=== PATIENT | female | born 2000 | race Caucasian/White ===

== ENCOUNTER 2023-09-07 13:11 | Emergency (ER) | payer BC, SELFPAY ==
[2023-09-07 13:22] VITALS: BP 116/100; PULSE 84; RESP 20; TEMP 36.9; O2SAT 100
--- NOTE | 2023-09-07 14:04 | ED.FEMALEGU ---
HPI - Female Genitourinary General Chief complaint: Urogenital-Female Stated complaint: Urinary Problem Source: patient and RN notes reviewed Mode of arrival: ambulatory Limitations: no limitations History of Present Illness HPI Narrative: 22-year-old female presented for complaint of burning with urination, blood in urine, frequency, urgency. Onset last night. Endorses suprapubic pressure throughout the night. denies hematuria, nausea, vomiting, abdominal pain, flank pain, constipation, diarrhea, fevers or chills. denies concern for STD Or . Related Data Allergies Allergy/AdvReac Type Severity Reaction Status Date / Time azithromycin Allergy Unknown Rash Verified 09/07/23 13:32 Review of Systems Review of Systems: CONSTITUTIONAL: Denies body aches, fever, chills, or sweats. CARDIOVASCULAR: Denies chest pain, palpitations, or edema. RESPIRATORY: Denies cough or dyspnea. GASTROINTESTINAL: Denies abdominal pain, nausea, vomiting, or diarrhea. GENITOURINARY: Reports dysuria, frequency, urgency, hematuria, denies flank pain SKIN: Denies rash, itching, or wounds. MUSCULOSKELETAL: Denies back pain or myalgia. PMFSH Comments At time of signature, I have reviewed and agree with nursing past medical, surgical, social and family history unless otherwise noted. Please see nursing chart for further information. There is no relevant family history pertinent to the presenting complaint Exam Narrative: GENERAL: Well-appearing and in no acute distress. ENT: Mucous membranes pink and moist. CHEST: No respiratory distress. Clear to auscultation. HEART: Regular rate and rhythm. ABDOMEN: Soft, nondistended, normal active bowel sounds. Suprapubic tenderness with palpation No CVA tenderness SKIN: Warm, dry, no rash. NEURO: No focal deficits. Alert and oriented x3. Gait steady.No signs of depression or anxiety. Course Course Emergency Course: Patient is aware of diagnosis, understands and agrees to treatment plan. Anticipatory guidance given. Patient agrees to follow-up as directed and is aware of reasons to seek care at the emergency department. Portions of this record may have been created with voice recognition software Level of Care: Express Care Visit Vital Signs Vital signs: Vital Signs Temperature 98.4 F 09/07/23 13:22 Pulse Rate 84 09/07/23 13:22 Respiratory Rate 20 09/07/23 13:22 Blood Pressure 116/100 H 09/07/23 13:22 Pulse Oximetry 100 09/07/23 13:22 Oxygen Delivery Room Air 09/07/23 13:22 Temperature 98.4 F 09/07/23 13:22 Pulse Rate 84 09/07/23 13:22 Respiratory Rate 20 09/07/23 13:22 Blood Pressure 116/100 H 09/07/23 13:22 Pulse Oximetry 100 09/07/23 13:22 Oxygen Delivery Room Air 09/07/23 13:22 Reviewed MDM - Female Genitourinary MDM Narrative Medical decision making narrative: results of urine reviewed with patient. Discussed physical exam findings And Rx. Advised supportive measures and signs/symptoms to go to the ER. Pt is appropriate for outpt treatment and f/u. Differential Diagnosis Differential diagnosis: Likely urinary tract infection, bacterial vaginosis, vaginitis and cystitis Lab Data Labs: Urine Glucose Negative Reference Range: Negative Urine Bilirubin Negative Reference Range: Negative Urine Ketone Negative Reference Range: Negative Urine Specific [place] 1.030 Reference Range:1.001-1.035 Urine Blood 2+ Reference Range: Negative * * Urine pH 6.0 Reference Range: 5.0-
== END 2023-09-07 14:10 | disposition home or self-care (01) ==
PROVIDERS: Emergency Provider Nurse Practitioner Family
DX: N39.0 Urinary tract infection, site not specified (principal); B96.20 Unspecified Escherichia coli [E. coli] as the cause of diseases classified elsewhere
CPT/HCPCS: 81003; 87077; 87086; 87186; 99213; G0463

== ENCOUNTER 2024-05-24 18:35 | Emergency (ER) | payer BC, SELFPAY ==
--- NOTE | ~2024-05-24 | XR_ITS ---
EXAMINATION: XR chest 2V DATE: 05/24/2024 19:32 INDICATION: Chest pain. TECHNIQUE: Frontal and lateral views of the chest were obtained. COMPARISON: None. FINDINGS: There is no pneumonia, pleural effusion, or pneumothorax. The heart size is normal. IMPRESSION: 1. No acute cardiopulmonary disease. Reviewed, dictated and finalized at location A. DEPATCHER
[2024-05-24 18:40] VITALS: BP 132/83; PULSE 89; RESP 16; TEMP 36.8; O2SAT 100
--- NOTE | 2024-05-24 18:45 | ECG_ITS ---
Test Date: 2024-05-24 18:45:19 Measurements Intervals [place] Rate: 83 P: 255 IN: 119 QRS: 74 QRSD: 81 T: 63 QT: 353 QTc: 416 Interpretive Statements ECTOPIC ATRIAL RHYTHM BASELINE ARTIFACT- I, II, III, AVR, AVL, AVF, V1-V6 ABNORMAL ECG No previous ECG available for comparison Electronically Signed On 05-25-2024 07:38:06 PAINT PREPARER by Tyrone Sosa D.O.
--- NOTE | 2024-05-24 18:56 | ED_ITS ---
HPI - Chest Pain General Chief Complaint: Chest Pain <CHELSEY Edwards Last Filed: 05/24/24 18:58> Stated Complaint: chest pain x 4 days, mono <Bisi Mora APRN - Last Filed: 05/24/24 18:58> Time Seen by Provider: 05/24/24 18:50 <Bisi Mora APRN - Last Filed: 05/24/24 18:58> Patient is a 23-year-old female who presents to the ER with complaints of chest pain. She was at urgent care earlier today and was diagnosed with mono. Patient reports she has been lethargic lately. She also reports the healthcare provider at urgent care wanted her to come get evaluated in the ER because of her chest pain with lack of cough. Patient reports she has a sore throat that started today but her lethargy started 4-5 days. She has no significant medical history related to this ER visit. Patient denies shortness of breath, fever, lower extremity swelling. <Bisi Mora APRN - Last Filed: 05/24/24 18:58> Source: patient <Naseem Carrillo PA-C - Last Filed: 05/25/24 01:11> Mode of arrival: ambulatory <Naseem Carrillo PA-C - Last Filed: 05/25/24 01:11> Limitations: no limitations <JOSIE Ocampo Last Filed: 05/25/24 01:11> History of Present Illness HPI narrative: Agree with triage note above <JOSIE Ocampo Last Filed: 05/25/24 01:11> Related Data Allergies/Adverse Reactions: Allergies Allergy/AdvReac Type Severity Reaction Status Date / Time azithromycin Allergy Unknown Rash Verified 09/07/23 13:32 <CHELSEY Edwards Last Filed: 05/24/24 18:58> Review of Systems Review of Systems: All systems as dictated in HPI <JOSIE Ocampo Last Filed: 05/25/24 01:11> Exam Narrative: GENERAL: Well-appearing, well-nourished, and in no acute distress. HEAD: Normocephalic, atraumatic. EYES: PERRLA and EOMI. ENT: Nares clear, no rhinorrhea or epistaxis. Mucous membranes moist. Oropharynx without tonsillar hypertrophy exudate or other lesions. NECK: Supple. No adenopathy or masses. CHEST: No respiratory distress. Clear to auscultation. No wheezes rales or rhonchi HEART: Regular rate and rhythm. No murmur heard. Normal peripheral pulses. ABDOMEN: Soft, nontender, nondistended, normal active bowel sounds. MSK: Normal range of motion. No edema. SKIN: Warm, dry, no rash. NEURO: Alert and oriented x4. No focal deficits. PSYCH: Normal mood and affect. <Naseem Carrillo PA-C - Last Filed: 05/25/24 01:11> Course Vital Signs Vital signs: Vital Signs Temperature 98.3 F 05/24/24 18:40 Pulse Rate 89 05/24/24 18:40 Respiratory Rate 16 05/24/24 18:40 Blood Pressure 132/83 05/24/24 18:40 Pulse Oximetry 100 05/24/24 18:40 Oxygen Delivery Room Air 05/24/24 18:40 Temperature 98.3 F 05/24/24 18:40 Pulse Rate 89 05/24/24 18:40 Respiratory Rate 18 05/24/24 22:52 Blood Pressure 120/73 05/24/24 22:52 Pulse Oximetry 100 05/24/24 22:52 Oxygen Delivery Room Air 05/24/24 22:52 <Bisi Mora, DIVINITY PROFESSOR - Last Filed: 05/24/24 18:58> Vital Signs Temperature 98.3 F 05/24/24 18:40 Pulse Rate 89 05/24/24 18:40 Respiratory Rate 16 05/24/24 18:40 Blood Pressure 132/83 05/24/24 18:40 Pulse Oximetry 100 05/24/24 18:40 Oxygen Delivery Room Air 05/24/24 18:40 Temperature 98.3 F 05/24/24 18:40 Pulse Rate 89 05/24/24 18:40 Respiratory Rate 18 05/24/24 22:52 Blood Pressure 120/73 05/24/24 22:52 Pulse Oximetry 100 05/24/24 22:52 Oxygen Delivery Room Air 05/24/24 22:52 <Naseem Carrillo PA-C - Last Filed: 05/25/24 01:11> MDM - Chest Pain MDM Narrative Medical decision making narrative: 23-year-old female presenting for chest pain with recently diagnosed viral was, mono.. Vitals are normal.. Exam is benign overall. Laboratory workup unremarkable including a negative troponin. Chest x-ray shows no acute findings. ECG shows normal sinus rhythm. D-dimer negative as well. Of presentation most likely consistent with pleurisy due to recent viral illness. Naproxen prescription given. Patient will be discharged in stable condition. Supportive measures discussed and return precautions given. Patient is understanding and agreeable with plan for discharge with PCP follow-up. <Naseem Carrillo PA-C - Last Filed: 05/25/24 01:11> Lab Data Result diagrams: 05/24/24 20:33 05/24/24 20:33 <Bisi Mora APRN - Last Filed: 05/24/24 18:58> Labs: Lab Results 05/24/24 05/24/24 Range/Units 20:33 21:59 WBC 10.1 H (4.5-10.0) K/mm3 RBC 5.03 (4.2-5.4) M/mm3 Hgb 14.9 (12.0-15.0) g/dL Hct 42.9 (37.0-47.0) % MCV 85.3 (80-100) fl MCH 29.6 (26-34) pg MCHC 34.7 (32-36) g/dl RDW 12.5 (11.5-14.5) % Plt Count 246 (150-375) k/mm3 MPV 10.4 (7.4-10.4) fl Immature Gran % (Auto) 0.2 (0-0.5) % Neut % (Auto) 66.2 (45.5-73.1) % Lymph % (Auto) 25.9 (18.3-44.2) % Rogers % (Auto) 5.7 (2.6-8.5) % Eos % (Auto) 1.4 (0-4.4) % Baso % (Auto) 0.6 (0.2-1.2) % Lymph # (Auto) 2.62 (0.9-3.2) K/mm3 Rogers # (Auto) 0.6 (0.1-0.6) K/mm3 Eos # (Auto) 0.1 (0-0.3) K/mm3 Baso # (Auto) 0.1 (0.0-0.1) K/mm3 Abs Immat Gran (auto) 0.02 (0.00-0.031) K/mm3 Absolute Neuts (auto) 6.7 (1.3-6.7) K/mm3 Absolute Nucleated RBC 0.000 (0.0-0.012) K/mm3 Nucleated RBC % 0.0 (0.0-0.2) % PT 13.5 (11.1-14.7) Seconds INR 1.0 APTT 26.7 (22.3-36.8) Seconds D-Dimer < 0.27 (<0.48) ug/mL Sodium 141 (137-145) mmol/L Potassium 3.9 (3.4-5.0) mmol/L Chloride 102 (98-107) mmol/L Carbon Dioxide 28 (22-30) mmol/L Anion Gap 11 (4-12) mmol/L BUN 14 (7-17) mg/dL Creatinine 0.70 (0.7-1.0) mg/dL Estim Creat Clear Calc 87 ml/min Estimated GFR > 60 (59 - ) Glucose 82 (65-110) mg/dL Calcium 10.3 H (8.4-10.2) mg/dL Total Bilirubin 0.5 (0.2-1.3) mg/dL AST 36 (14-36) U/L ALT 40 H (6-35) U/L Alkaline Phosphatase 55 (38-126) U/L Troponin I < 0.012 < 0.012 (0.000-0.034) ng/mL Total Protein 9.0 H (6.3-8.2) g/dL Albumin 5.3 H (3.5-5.1) g/dL Lipase 80 (23-300) U/L <Bisi Mora, DIVINITY PROFESSOR - Last Filed: 05/24/24 18:58> Lab Results 05/24/24 05/24/24 Range/Units 20:33 21:59 WBC 10.1 H (4.5-10.0) K/mm3 RBC 5.03 (4.2-5.4) M/mm3 Hgb 14.9 (12.0-15.0) g/dL Hct 42.9 (37.0-47.0) % MCV 85.3 (80-100) fl MCH 29.6 (26-34) pg MCHC 34.7 (32-36) g/dl RDW 12.5 (11.5-14.5) % Plt Count 246 (150-375) k/mm3 MPV 10.4 (7.4-10.4) fl Immature Gran % (Auto) 0.2 (0-0.5) % Neut % (Auto) 66.2 (45.5-73.1) % Lymph % (Auto) 25.9 (18.3-44.2) % Rogers % (Auto) 5.7 (2.6-8.5) % Eos % (Auto) 1.4 (0-4.4) % Baso % (Auto) 0.6 (0.2-1.2) % Lymph # (Auto) 2.62 (0.9-3.2) K/mm3 Rogers # (Auto) 0.6 (0.1-0.6) K/mm3 Eos # (Auto) 0.1 (0-0.3) K/mm3 Baso # (Auto) 0.1 (0.0-0.1) K/mm3 Abs Immat Gran (auto) 0.02 (0.00-0.031) K/mm3 Absolute Neuts (auto) 6.7 (1.3-6.7) K/mm3 Absolute Nucleated RBC 0.000 (0.0-0.012) K/mm3 Nucleated RBC % 0.0 (0.0-0.2) % PT 13.5 (11.1-14.7) Seconds INR 1.0 APTT 26.7 (22.3-36.8) Seconds D-Dimer < 0.27 (<0.48) ug/mL Sodium 141 (137-145) mmol/L Potassium 3.9 (3.4-5.0) mmol/L Chloride 102 (98-107) mmol/L Carbon Dioxide 28 (22-30) mmol/L Anion Gap 11 (4-12) mmol/L BUN 14 (7-17) mg/dL Creatinine 0.70 (0.7-1.0) mg/dL Estim Creat Clear Calc 87 ml/min Estimated GFR > 60 (59 - ) Glucose 82 (65-110) mg/dL Calcium 10.3 H (8.4-10.2) mg/dL Total Bilirubin 0.5 (0.2-1.3) mg/dL AST 36 (14-36) U/L ALT 40 H (6-35) U/L Alkaline Phosphatase 55 (38-126) U/L Troponin I < 0.012 < 0.012 (0.000-0.034) ng/mL Total Protein 9.0 H (6.3-8.2) g/dL Albumin 5.3 H (3.5-5.1) g/dL Lipase 80 (23-300) U/L <Naseem Carrillo PA-C - Last Filed: 05/25/24 01:11> ECG Data EKG #1: ECG completion date: 05/24/24 <JOSIE Ocampo Last Filed: 05/25/24 01:11> ECG completion time: 22:03 <JOSIE Ocampo Last Filed: 05/25/24 01:11> Prior ECG tracings: not available for review <JOSIE Ocampo Last Filed: 05/25/24 01:11> Interpretation: Sinus rhythm Rate 74 Normal QRS Normal QTC No acute ischemic findings <Naseem Carrillo PA-C - Last Filed: 05/25/24 01:11> Discharge Plan Discharge Clinical Impression: Pleurisy <Bisi Mora APRN - Last Filed: 05/24/24 18:58> Patient Disposition: Home, Self-Care <CHELSEY Edwards Last Filed: 05/24/24 18:58> Condition: Stable <CHELSEY Edwards Last Filed: 05/24/24 18:58> Instructions: Antibiotic Form <Bisi Mora APRN - Last Filed: 05/24/24 18:58> Additional Instructions: Exam and imaging today are reassuring. Please take naproxen twice per day for chest pain and sore throat. The mono should resolve over the next 3-4 weeks. If you have any new or worse ingrid symptoms please return to the ER for further evaluation. <Bisi Mora APRN - Last Filed: 05/24/24 18:58> Prescriptions: New naproxen 500 mg tablet 500 mg PO BID PRN (Reason: pain) Qty: 30 0RF No Action phenazopyridine [Pyridium] 200 mg tablet 200 mg PO TID 2 Days Qty: 6 0RF nitrofurantoin monohyd/m-cryst [Macrobid] 100 mg capsule 100 mg PO Q12H 5 Days Qty: 10 0RF Rx Instructions: must administer with a meal/food <Bisi Mora APRN - Last Filed: 05/24/24 18:58> Follow-up/Referrals: PHYSICIAN,[facility] [Primary Care Provider] - <Bisi Mora APRN - Last Filed: 05/24/24 18:58> Time of Disposition: 22:48 <Bisi Mora APRN - Last Filed: 05/24/24 18:58> 22:48 <Naseem Carrillo PA-C - Last Filed: 05/25/24 01:11> Quality HEART score for chest pain patients History: slightly suspicious <Naseem Carrillo PA-C - Last Filed: 05/25/24 01:11> ECG: normal <Naseem Carrillo PA-C - Last Filed: 05/25/24 01:11> Age: < or = to 45 years <Naseem Carrillo PA-C - Last Filed: 05/25/24 01:11> Risk factors: no risk factors known <Naseem Carrillo PA-C - Last Filed: 05/25/24 01:11> Troponin: < or = to 1x normal limit <Naseem Carrillo PA-C - Last Filed: 05/25/24 01:11> Heart score: 0 <Naseem Carrillo PA-C - Last Filed: 05/25/24 01:11>
[2024-05-24 20:43] LABS: Basophils Absolute Auto 0.1 K/mm3 (0.0-0.1); Basophils Percent Auto 0.6 % (0.2-1.2); Eosinophils Absolute Auto 0.1 K/mm3 (0-0.3); Eosinophils Percent Auto 1.4 % (0-4.4); Hematocrit 42.9 % (37.0-47.0); Hemoglobin 14.9 g/dL (12.0-15.0); Immature Granulocyte Absolute 0.02 K/mm3 (0.00-0.031); Immature Granulocyte Percent A 0.2 % (0-0.5); Lymphocytes Absolute Auto 2.62 K/mm3 (0.9-3.2); Lymphocytes Percent Auto 25.9 % (18.3-44.2); Mean Corpuscular HGB Conc 34.7 g/dl (32-36); Mean Corpuscular Hemoglobin 29.6 pg (26-34); Mean Corpuscular Volume 85.3 fl (80-100); Mean Platelet Volume 10.4 fl (7.4-10.4); Monocytes Absolute Auto 0.6 K/mm3 (0.1-0.6); Monocytes Percent Auto 5.7 % (2.6-8.5); Neutrophils Absolute Auto 6.7 K/mm3 (1.3-6.7); Neutrophils Percent Auto 66.2 % (45.5-73.1); Platelet Count Result 246 k/mm3 (150-375); Red Blood Count 5.03 M/mm3 (4.2-5.4); Red Cell Distribution Width 12.5 % (11.5-14.5); White Blood Count 10.1 K/mm3 (4.5-10.0)
[2024-05-24 20:54] LABS: Alanine Aminotransferase 40 U/L (6-35); Albumin Level 5.3 g/dL (3.5-5.1); Alkaline Phosphatase 55 U/L (38-126); Anion Gap 11 mmol/L (4-12); Aspartate Amino Transferase 36 U/L (14-36); Bilirubin,Total 0.5 mg/dL (0.2-1.3); Blood Urea Nitrogen 14 mg/dL (7-17); Calcium 10.3 mg/dL (8.4-10.2); Carbon Dioxide 28 mmol/L (22-30); Chloride 102 mmol/L (98-107); Estimated CRCL calculation 87 ml/min; Estimated Glomerular Filt Rate > 60; Glucose 82 mg/dL (65-110); Lipase 80 U/L (23-300); Potassium 3.9 mmol/L (3.4-5.0); Sodium 141 mmol/L (137-145)
[2024-05-24 21:05] LABS: Prothrombin Time 13.5 Seconds (11.1-14.7); Troponin I < 0.012 ng/mL (0.000-0.034)
[2024-05-24 21:06] LABS: Partial Thromboplastin Time 26.7 Seconds (22.3-36.8)
[2024-05-24 21:11] LABS: D Dimer < 0.27 ug/mL (<0.48)
--- NOTE | 2024-05-24 22:03 | ECG_ITS ---
Test Date: 2024-05-24 22:03:08 Measurements Intervals [place] Rate: 74 P: 4 OR: 170 QRS: 82 QRSD: 85 T: 66 QT: 357 QTc: 397 Interpretive Statements SINUS RHYTHM BASELINE ARTIFACT- I, II, III, AVR, AVL, AVF, V2 NORMAL ECG No previous ECG available for comparison Electronically Signed On 05-25-2024 05:21:44 DIRECTOR OF [employer]ANDS by Tyrone Sosa D.O.
[2024-05-24 22:25] LABS: Troponin I < 0.012 ng/mL (0.000-0.034)
[2024-05-24 22:52] VITALS: BP 120/73; RESP 18; O2SAT 100; O2SAT 98
== END 2024-05-24 22:58 | disposition home or self-care (01) ==
PROVIDERS: Registered Nurse; Emergency Provider Physician Assistant
DX: R09.1 Pleurisy (principal); R94.31 Abnormal electrocardiogram [ECG] [EKG]
CPT/HCPCS: 36415; 71046; 80053; 83690; 84484; 85025; 85380; 85610; 85730; 93005; 99284